=== PATIENT | female | born 1965 | race Two or more races ===

== ENCOUNTER → 2020-10-10 15:54 | Outpatient (BNVA) | payer MEDICAID, SELFPAY | PROVIDERS: PCP Pediatrics; Referring Provider Pediatrics; Visit Provider Hospitalist | DX: Z76.89 Persons encountering health services in other specified circumstances (principal) ==

== ENCOUNTER → 2021-01-02 14:26 | Outpatient (BNVA) | payer MEDICAID, SELFPAY | PROVIDERS: PCP Pediatrics; Visit Provider Hospitalist ==

== ENCOUNTER 2022-01-02 13:00 | Outpatient (REF) | payer MEDICAID, SELFPAY ==
--- NOTE | ~2022-01-02 | XR_ITS ---
EXAMINATION: XR CHEST CLINICAL INFORMATION: Moderate persistent asthma. COMPARISON: None TECHNIQUE: 2 views of the chest were obtained. FINDINGS: No significant abnormality is noted involving the heart, lungs, mediastinum, bony thorax or soft tissues. XR/XR chest 2V IMPRESSION: Unremarkable chest examination.
[2022-01-02 15:35] LABS: Erythrocyte Sedimentation Rate 5 MM/HR (0-20)
[2022-01-04 12:51] LABS: Anti Nuclear Antibody Screen NEGATIVE (NEGATIVE)
[2022-01-07 07:12] LABS: Angiotensin Converting Enzyme 61.9 U/L (9-67)
== END 2022-01-02 13:01 | disposition home or self-care (01) ==
LOC: HO.XRAY 13:00
PROVIDERS: PCP Pediatrics; Visit Provider Hospitalist
DX: J45.40 Moderate persistent asthma, uncomplicated (principal); R91.8 Other nonspecific abnormal finding of lung field
CPT/HCPCS: 36415; 71046; 82164; 82785; 85652; 86003; 86038; 86039; 99212

== ENCOUNTER 2022-03-29 15:37 | Outpatient (REF) | payer MEDICAID, SELFPAY ==
--- NOTE | 2022-03-29 17:12 | PFT_ITS ---
FLOWS: FEV1 95% of predicted at 2.45 L. FVC 91% of predicted at 2.95 L. FEV1 to FVC ratio of 0.83. No bronchodilator response. LUNG VOLUMES: Total lung capacity 111% of predicted at 5.62 L. Residual volume 129% of predicted at 2.55 L. Slow vital capacity 99% of predicted at 3.07 L. Expiratory reserve volume 16% of predicted at 0.15 L. Diffusion capacity is normal. IMPRESSION: No obstructive or restrictive ventilatory defect. No bronchodilator response. Increased residual volume suggests air trapping. Decreased expiratory reserve volume suggests extrathoracic restriction likely secondary to abdominal obesity. MD SUSAN Thao/MODL / [id number]
== END 2022-03-29 15:38 | disposition home or self-care (01) ==
LOC: HO.RESP 15:37
PROVIDERS: PCP Pediatrics; Visit Provider Hospitalist
DX: J45.40 Moderate persistent asthma, uncomplicated (principal)
CPT/HCPCS: 94060; 94727; 94729

== ENCOUNTER 2023-03-06 09:57 | Outpatient (REF) | payer OTHER, SELFPAY ==
[2023-03-06 10:47] LABS: MANUAL DIFF FLAG NO
[2023-03-06 10:56] LABS: Basophils Percent Auto 0.7 % (0-2); Eosinophils Absolute Auto 0.1 X10*3/uL (0.0-0.4); Eosinophils Percent Auto 2.1 % (0-4); Hematocrit 39.4 % (37.0-47.0); Imm Gran Abs Auto 0.01 X10*3/uL (0.00-0.03); Imm Gran Pct Auto 0.2 % (0.0-0.4); Lymphocytes Absolute Auto 1.7 X10*3/uL (1.2-4.9); Lymphocytes Percent Auto 30.2 % (20-40); Mean Corpuscular Hemoglobin 28.4 pg (27.0-33.0); Mean Platelet Volume 11.8 fL (9.4-12.3); Monocytes Absolute Auto 0.4 X10*3/uL (0.1-1.2); Monocytes Percent Auto 7.3 % (2-11); Neutrophils Absolute Auto 3.3 x10*3/uL (2.0-8.3); Neutrophils Percent Auto 59.5 % (45-73); Platelet Count 161 X10*3/uL (160-400); Red Blood Count 4.58 X10*6/uL (4.20-5.50); Red Cell Distribution Width 13.1 % (11.0-16.0); White Blood Count 5.6 X10*3/uL (4.8-10.8)
[2023-03-06 11:33] LABS: Erythrocyte Sedimentation Rate 13 MM/HR (0-20)
[2023-03-06 12:00] LABS: Anion Gap 10 (12-20); Blood Urea Nitrogen 13 mg/dL (9-16); Calcium 9.3 mg/dL (8.4-10.2); Carbon Dioxide 28 mmol/L (22-29); Chloride 107 mmol/L (96-108); Estimated Glomerular Filt Rate > 60; Glucose Random 98 mg/dL (60-115); Potassium 4.1 mmol/L (3.3-5.1); Sodium 141 mmol/L (135-145)
[2023-03-06 12:21] LABS: TSH reflex Free T4 2.33 uIU/mL (0.32-4.0)
== END 2023-03-06 09:58 | disposition home or self-care (01) ==
LOC: HO.LAB 09:57
PROVIDERS: PCP Pediatrics; Visit Provider Hospitalist
DX: U09.9 Post COVID-19 condition, unspecified (principal); J45.40 Moderate persistent asthma, uncomplicated; R91.8 Other nonspecific abnormal finding of lung field; R53.82 Chronic fatigue, unspecified
CPT/HCPCS: 36415; 80048; 84443; 85025; 85652; 99212

== ENCOUNTER 2023-08-16 10:46 | Outpatient (AMB) | payer OTHER, SELFPAY ==
--- NOTE | 2023-08-16 10:46 | A.OFFVIS_ITS ---
Intake Vital Signs 08/16/23 10:47 Height 5 ft 4 in Weight 180 lb BMI 30.9 Intake Visit Reasons: Asthma Licensed Mortician Required: No Allergies ibuprofen Allergy (Severe, Verified 08/16/23 10:47) Itching Apple Allergy (Severe, Uncoded 08/16/23 10:47) rash and hives Cheese Allergy (Severe, Uncoded 08/16/23 10:47) rash and hives Chocolate Allergy (Severe, Uncoded 08/16/23 10:47) rash and hives Cola Allergy (Severe, Uncoded 08/16/23 10:47) rash and hives Darrian Allergy (Severe, Uncoded 08/16/23 10:47) rash and hives Shrimp Allergy (Severe, Uncoded 08/16/23 10:47) rash and hives HPI HPI Comments History of Present Illness Details The patient is a 58-year-old woman known history of asthma, chronic rhinitis with significant allergies in addition to pulmonary nodules. The last CT scan of the chest was more than a year ago demonstrating stable pulmonary nodules. The patient has been having worsening nasal congestion. Also worsening cough and shortness of breath. Moderate severity. She did have a cardiac catheterization which ruled out any cardiac involvement. She complains of shortness of breath and cough. She stopped using all her allergy and also respiratory therapy at this time. She also had a CT scan at [facility] the chest. We personally reviewed it. She has some areas of scarring and also atelectasis. She also had stable pulmonary nodules. She has some areas of bronchiectatic looking airways but not significant. She has small hiatal hernia. Otherwise she is doing well on the current therapy. She has been doing well, has had episodic coughing. mild to moderate. Improves with respitary therapy. 10/10/2020 the patient has a telephone v [employer] today. Overall her respiratory status has been better. She still has a cough. Intermittent. Usually nonproductive. She does have a rescue inhaler that she uses as needed. Has not required it more than twice a week. She has not required any prednisone. She has not required her nebulized therapy either. Her chest pain has improved as well. In the meantime we did talk about her CT scan of the chest that she had a [facility]. She had ongoing pulmonary nodules. Her last CT scan was back in 2019. The patient will need a repeat CT scan of the chest ideally for early 2020. 01/02/2021 the patient has a telephone v isit. Overall the patient has been doing well. She has not required her short-acting beta agonist. Has not had any respiratory symptoms to be concerned about. Patient has been concerned about her mother that was diagnosed with COVID-19. She ultimately had a postviral bacterial process that required hospitalization. Now she is back home. She is concerned about any exposure to her mouth. I have reassured her that her mom is no longer contagious due to the fact that it has been about 4 weeks since her initial infection. However, taking all precautions with family is connor to minimize exposure to this virus. Therefore should continue to maintain adequate mask wearing and physical distance in from even family at this point is necessary. The patient did have a CT scan of the chest that we personally reviewed. It appears that her pulmonary nodules have not changed in a couple years. Therefore no additional testing is warranted at this time. Therefore I will not reschedule any serial CT scans, unless, the patient develops any new or kidney concerning symptoms. 01/02/2022 the patient is here for pulmona ry follow-up visit. She is complaining of worsening dyspnea symptoms in addition to left-sided chest discomfort at times. [id number] severity. The symptoms that appear to be getting worse. She does not get relief with her rescue inhaler. We did review her last CT scan of the chest which was reassuring demonstrating stable pulmonary nodules. No evidence of any parenchymal or pleural based disease to explain the chest discomfort. At this point she does have a cardiac evaluation coming up which I think will be important in her evaluation. 08/28/2022 the patient is here for a telehealth visit. The patient states that she was in usual state health until she was exposed to COVID-19. Ultimately developing COVID more than a week ago. She started developing significant tachycardia to the point that she was taken to the ER. She is admitted briefly at the hospital. There she had additional EKGs demonstrating tachycardia and also underwent blood work demonstrating an elevated brain natretic peptide. her cardiac condition improvement she was able to be sent home. She continues to have some degree of tachycardia and palpitations. She also had activations of her asthma. She has been using her rescue inhaler and nebulizer. I will provide her with additional medicine for her to have. But I did emphasize to the patient that the beta agonist will potentially cause increased cardiac arrhythmias and also tachy cardia. The patient understands that and she does not appear to need it that she wants to be able to have if her symptoms worsen. 03/06/2023 the patient is here for pulmon lesley follow-up visit. Since she has had COVID she has not for the same. She is still complaining of significant chronic fatigue. She does sleep a full night. Denies any snoring and denies any episodes of shortness of breath. She has never been told of having apneic episodes. Denies any headaches in the morning. She does wake up often to go to the bathroom but otherwise she goes back to bed. Even having a full night's sleep the patient struggles with the activities daily living. Indeed this could be related to her post COVID with chronic fatigue. We can try small dose of Provigil to see if this helps her. If it does not she can always stop it and we can consider sleep aid to see if we can help her have better sleep hygiene. She continues with respiratory medicines. Overall the patient is doing better from a respiratory status. 08/16/2023 the patient has a telehealth visit today. Recently she was diagnosed with COVID-19. the patient did develop a fever and also has been Having issues with fatigue. The patient has been starting to feel better. She did not take any antiviral medicines. She has been noticing some chest tightness although she is not having any significant wheezing at this time. She does have a cough which is nonproductive in nature. She has been using the albuterol with good effect. will go ahead and provide her with short-acting beta agonist. Does not appear that she needs any prednisone or any antibiotics at this time. The patient is aware that if she develops worsening chest tightness or wheezing or a productive cough with chest congestion she is to call the office. If her symptoms are severe or concerning she should definitely go to the ER. No recent imaging or laboratory to review this time. Will follow-up in 6 months. [facility] Medical History (Updated 03/06/23 @ 10:23 by Jesús Balderrama MD) Chronic fatigue [id number] syndrome Moderate persistent asthma Pulmonary nodules Social History (Updated 01/02/22 @ 13:08 by JINA Webb) Patient Tobacco Use Status: Never used Tobacco Review of Systems Const Reports daytime sleepiness, Reports fatigue, Denies fever(s), Reports lethargy and Denies night sweats ENT Denies change in voice, Denies lip swelling, Denies mouth pain, Reports nasal congestion, Reports nasal discharge and Denies tongue swelling Card Denies chest pain, Reports palpitations and Reports dyspnea on exertion Resp Reports cough and Reports dyspnea on exertion GI Denies abdominal pain Musc Denies no additional complaints Skin/Breast Denies rash Neuro Denies Neuro-related abnormal movements Psych Denies no additional complaints Endo Reports fatigue and Reports palpitations Moody/Lymph Denies easy bleeding and Denies lymphadenopathy Aller/Immun Denies lip swelling and Denies tongue swelling Physical Exam Vital Signs: BMI result Body Mass Index 30.9 Const General: comfortable Orientation/consciousness: patient oriented x3 Resp Effort & Inspection: normal respiratory effort and able to speak in complete sentences Neuro General: patient oriented x3 Assessment & Plan Assessment & Plan (1) Moderate persistent asthma: Code(s): J45.40 - Moderate persistent asthma, uncomplicated Qualifiers: Asthma complication type: uncomplicated Qualified Code(s): J45.40 - Moderate persistent asthma, uncomplicated (2) Pulmonary nodules: Code(s): R91.8 - Other nonspecific abnormal finding of lung field (3) Chronic fatigue: Code(s): R53.82 - Chronic fatigue, unspecified (4) COVID-19: Code(s): U07.1 - COVID-19 Plan continue short-acting beta agonist as needed continue singular at nighttime continue antihistamines as needed call if symptoms worsen follow-up in 6 months Medications: New albuterol sulfate 90 mcg/actuation (Ventolin HFA) 2 puffs inhalation QID 30 days PRN 18 grams 11RF shortness of breath or wheezing Refilled albuterol sulfate 90 mcg/actuation (Ventolin HFA) INHALE 2 PUFFS BY MOUTH EVERY 4 TO 6 HOURS NEEDED FOR SHORTNESS OF BREATH OR WHEEZING 18 ea 0RF J45.40 - Moderate persistent asthma, uncomplicated albuterol sulfate 2.5 mg (3 mL) inhalation Q6H PRN 180 mL 6RF shortness of breath or wheezing Telehealth Telehealth Location of provider rendering services: practice address Location of patient: address on file Patient Identification confirmed using: Name, : Yes Telehealth method: voice only Patient verbally consented to treatment: Yes Patient verbally consented to billing insurance company: Yes Patient informed of any privacy concerns related to visit: Yes Coding Level of Care Code Est Pt Level 4 (61000) Diagnoses Moderate persistent asthma without complication J45.40 Asthma complication type: uncomplicated Pulmonary nodules R91.8 Chronic fatigue R53.82 COVID-19 U07.1 Time Spent (min) 15
[2023-08-16 10:47] VITALS: BMI 30.9
== END 2023-08-16 13:26 | disposition home or self-care (01) ==
LOC: HO.HPS 10:46
PROVIDERS: PCP Pediatrics; Visit Provider Hospitalist
DX: J45.40 Moderate persistent asthma, uncomplicated (principal); R91.8 Other nonspecific abnormal finding of lung field; R53.82 Chronic fatigue, unspecified; U07.1 COVID-19
CPT/HCPCS: 99214

== ENCOUNTER → 2023-08-16 10:46 | Outpatient (BNVA) | payer OTHER, SELFPAY | PROVIDERS: PCP Pediatrics; Visit Provider Hospitalist | DX: U07.1 COVID-19 (principal); J45.40 Moderate persistent asthma, uncomplicated; R91.8 Other nonspecific abnormal finding of lung field; R53.83 Other fatigue | CPT/HCPCS: 99212 ==

== ENCOUNTER 2025-08-06 13:53 | Outpatient (AMB) | payer OTHER, SELFPAY ==
[2025-08-06 13:55] VITALS: BP 128/73; PULSE 80; O2SAT 99; BMI 29.9
--- NOTE | 2025-08-06 13:55 | A.OFFVIS_ITS ---
Vital Signs 3 08/06/25 13:55 Height 5 ft 4 in Weight 174 lb BMI 29.9 BP 128/73 Blood Pressure Location Rt brachial Position Sitting Pulse 80 Pulse Source Pulse Oximeter Pulse Oximetry (%) 99 Oxygen Delivery Method Room Air Intake Visit Reasons: asthma Allergies ibuprofen Allergy (Severe, Verified 08/06/25 13:59) Itching Apple Allergy (Severe, Uncoded 08/16/23 10:47) rash and hives Cheese Allergy (Severe, Uncoded 08/16/23 10:47) rash and hives Chocolate Allergy (Severe, Uncoded 08/16/23 10:47) rash and hives Cola Allergy (Severe, Uncoded 08/16/23 10:47) rash and hives Darrian Allergy (Severe, Uncoded 08/16/23 10:47) rash and hives Shrimp Allergy (Severe, Uncoded 08/16/23 10:47) rash and hives HPI Comments Details: The patient is a 60-year-old woman known history of asthma, chronic rhinitis with significant allergies in addition to pulmonary nodules. The last CT scan of the chest was more than a year ago demonstrating stable pulmonary nodules. The patient has been having worsening nasal congestion. Also worsening cough and shortness of breath. Moderate severity. She did have a cardiac catheterization which ruled out any cardiac involvement. She complains of shortness of breath and cough. She stopped using all her allergy and also respiratory therapy at this time. She also had a CT scan at [facility] the chest. We personally reviewed it. She has some areas of scarring and also atelectasis. She also had stable pulmonary nodules. She has some areas of bronchiectatic looking airways but not significant. She has small hiatal hernia. Otherwise she is doing well on the current therapy. She has been doing well, has had episodic coughing. mild to moderate. Improves with respitary therapy. 10/10/2020 the patient has a telephone visit today. Overall her respiratory status has been better. She still has a cough. Intermittent. Usually nonproductive. She does have a rescue inhaler that she uses as needed. Has not required it more than twice a week. She has not required any prednisone. She has not required her nebulized therapy either. Her chest pain has improved as well. In the meantime we did talk about her CT scan of the chest that she had a [facility]. She had ongoing pulmonary nodules. Her last CT scan was back in 2019. The patient will need a repeat CT scan of the chest ideally for early 2020. 01/02/2021 the patient has a telephone visit. Overall the patient has been doing well. She has not required her short-acting beta agonist. Has not had any respiratory symptoms to be concerned about. Patient has been concerned about her mother that was diagnosed with COVID-19. She ultimately had a postviral bacterial process that required hospitalization. Now she is back home. She is concerned about any exposure to her mouth. I have reassured her that her mom is no longer contagious due to the fact that it has been about 4 weeks since her initial infection. However, taking all precautions with family is connor to minimize exposure to this virus. Therefore should continue to maintain adequate mask wearing and physical distance in from even family at this point is necessary. The patient did have a CT scan of the chest that we personally reviewed. It appears that her pulmonary nodules have not changed in a couple years. Therefore no additional testing is warranted at this time. Therefore I will not reschedule any serial CT scans, unless, the patient develops any new or kidney concerning symptoms. 01/02/2022 the patient is here for pulmonary follow-up visit. She is complaining of worsening dyspnea symptoms in addition to left-sided chest discomfort at times. Sryv-iw-hjlqhspj severity. The symptoms that appear to be getting worse. She does not get relief with her rescue inhaler. We did review her last CT scan of the chest which was reassuring demonstrating stable pulmonary nodules. No evidence of any parenchymal or pleural based disease to explain the chest discomfort. At this point she does have a cardiac evaluation coming up which I think will be important in her evaluation. 08/28/2022 the patient is here for a telehealth visit. The patient states that she was in usual state health until she was exposed to COVID-19. Ultimately developing COVID more than a week ago. She started developing significant tachycardia to the point that she was taken to the ER. She is admitted briefly at the hospital. There she had additional EKGs demonstrating tachycardia and also underwent blood work demonstrating an elevated brain natretic peptide. her cardiac condition improvement she was able to be sent home. She continues to have some degree of tachycardia and palpitations. She also had activations of her asthma. She has been using her rescue inhaler and nebulizer. I will provide her with additional medicine for her to have. But I did emphasize to the patient that the beta agonist will potentially cause increased cardiac arrhythmias and also tachy cardia. The patient understands that and she does not appear to need it that she wants to be able to have if her symptoms worsen. 03/06/2023 the patient is here for pulmonary follow-up visit. Since she has had COVID she has not for the same. She is still complaining of significant chronic fatigue. She does sleep a full night. Denies any snoring and denies any episodes of shortness of breath. She has never been told of having apneic episodes. Denies any headaches in the morning. She does wake up often to go to the bathroom but otherwise she goes back to bed. Even having a full night's sleep the patient struggles with the activities daily living. Indeed this could be related to her post COVID with chronic fatigue. We can try small dose of Provigil to see if this helps her. If it does not she can always stop it and we can consider sleep aid to see if we can help her have better sleep hygiene. She continues with respiratory medicines. Overall the patient is doing better from a respiratory status. 08/16/2023 the patient has a telehealth visit today. Recently she was diagnosed with COVID-19. the patient did develop a fever and also has been Having issues with fatigue. The patient has been starting to feel better. She did not take any antiviral medicines. She has been noticing some chest tightness although she is not having any significant wheezing at this time. She does have a cough which is nonproductive in nature. She has been using the albuterol with good effect. will go ahead and provide her with short-acting beta agonist. Does not appear that she needs any prednisone or any antibiotics at this time. The patient is aware that if she develops worsening chest tightness or wheezing or a productive cough with chest congestion she is to call the office. If her symptoms are severe or concerning she should definitely go to the ER. No recent imaging or laboratory to review this time. Will follow-up in 6 months. 08/06/2025 the patient is here for pulmonary follow-up visit. Overall she is doing very well. She continues with respiratory medications as prescribed. She does need her nebulized solution albuterol solution as she does use those several times a week. The patient has not had any recent flare-ups. She is no longer on any Singulair. Although she does take her Zyrtec daily. No recent imaging to review although back in 2021 she had a chest x-ray without any acute disease and prior to that she had a CT scan of the chest. PFTs were back from 2021. Overall the patient is doing well she is looking to relocate to [place]. Will make sure to provide enough medicine for her to be able to transition to [place]. And she can always request records. Will follow-up as needed. [facility] Medical History (Updated 08/08/25 @ 20:17 by Jesús Balderrama MD) Chronic fatigue [id number] syndrome Moderate persistent asthma Pulmonary nodules Social History (Updated 01/02/22 @ 13:08 by JINA Webb) Patient Tobacco Use Status: Never used Tobacco Review of Systems Const Reports daytime sleepiness, Reports fatigue, Denies fever(s), Reports lethargy and Denies night sweats ENT Denies change in voice, Denies lip swelling, Denies mouth pain, Reports nasal congestion, Reports nasal discharge and Denies tongue swelling Card Denies chest pain, Reports palpitations and Reports dyspnea on exertion Resp Reports cough and Reports dyspnea on exertion GI Denies abdominal pain Musc Denies no additional complaints Skin/Breast Denies rash Neuro Denies Neuro-related abnormal movements Psych Denies no additional complaints Endo Reports fatigue and Reports palpitations Moody/Lymph Denies easy bleeding and Denies lymphadenopathy Aller/Immun Denies lip swelling and Denies tongue swelling Physical Exam Vital Signs: Last Vital Signs Pulse 80 08/06/25 13:55 BP 128/73 08/06/25 13:55 Pulse Ox 99 08/06/25 13:55 Oxygen Delivery Method Room Air 08/06/25 13:55 BMI result Body Mass Index 29.9 Const General: alert Neck Neck: Yes normal visual inspection, Yes full ROM and Yes no lymphadenopathy Chest Chest palpation & inspection: normal inspection of the chest Resp Effort & Inspection: normal respiratory effort Auscultation: clear to auscultation bilaterally Cardio Rate: regular rate Rhythm: regular rhythm Heart sounds: S1 normal heart sound present and S2 normal heart sound present GI Palpation (GI): Soft to palpation and nontender Auscultation: normal bowel sounds Skin General skin exam: rashes and/or lesions noted Results Reviewed Results Reviewed: Assessment & Plan Assessment & Plan (1) Moderate persistent asthma: Code(s): J45.40 - Moderate persistent asthma, uncomplicated Category: Medical Qualifiers: Asthma complication type: uncomplicated Qualified Code(s): J45.40 - Moderate persistent asthma, uncomplicated (2) Pulmonary nodules: Comment: unchanged , stable Code(s): R91.8 - Other nonspecific abnormal finding of lung field Category: Medical Plan continue short-acting beta agonist as needed continue singular at nighttime continue antihistamines as needed Follow-up PRN Medications: Changed 2 From cetirizine (Zyrtec) 10 mg PO DAILY PRN To cetirizine (Zyrtec) 10 mg PO DAILY 90 tabs 3RF 90 days Refilled 2 albuterol sulfate 90 mcg/actuation (Ventolin HFA) 2 puffs inhalation QID PRN 18 grams 11RF shortness of breath or wheezing 30 days albuterol sulfate 2.5 mg (3 mL) inhalation Q6H PRN 180 mL 11RF shortness of breath or wheezing Coding Level of Care Code Est Pt Level 4 (22040) Complex EM visit Add On G2211 Diagnoses Moderate persistent asthma without complication J45.40 Asthma complication type: uncomplicated Pulmonary nodules R91.8 Time Spent (min) 16
== END 2025-08-06 14:09 | disposition home or self-care (01) ==
LOC: HO.HPS 13:54
PROVIDERS: PCP Pediatrics; Visit Provider Hospitalist
DX: J45.40 Moderate persistent asthma, uncomplicated (principal); R91.8 Other nonspecific abnormal finding of lung field
CPT/HCPCS: 99214; G2211

== ENCOUNTER → 2025-08-06 13:53 | Outpatient (BNVA) | payer OTHER, SELFPAY | PROVIDERS: PCP Pediatrics; Visit Provider Hospitalist | DX: J45.40 Moderate persistent asthma, uncomplicated (principal); R91.8 Other nonspecific abnormal finding of lung field | CPT/HCPCS: 99212 ==